=== PATIENT | male | born 1975 | race Caucasian/White ===

== ENCOUNTER 2016-07-23 11:12 | Emergency (ER) | payer SELFPAY ==
[~2016-07-23] VITALS: Ht 167.6 cm; Wt 62.4 kg
[~2016-07-23 11:12] MED LIST: PERCOCET 7.5-51 EACH PO
[2016-07-23 11:48] LABS: HEMATOCRIT 51.9 % (38.0-50.0); MCH 31.7 PG (29.0-34.0); MCHC 34.1 G/DL (30.0-36.0); RBC DIS.WIDTH-CV 12.2 % (11.8-14.6); RBC DIS.WIDTH-SD 42.3 % (39-53); RED BLOOD COUNT 5.58 M/uL (4.00-5.50)
[2016-07-23 12:00] LABS: CHLORIDE 104 mEq/L (99-109); SODIUM 140 mEq/L (136-147)
[2016-07-23 12:03] LABS: GLUCOSE 91 mg/dL (70-99)
[2016-07-23 12:04] LABS: ANION GAP 11 MEQ/L (2-14)
[2016-07-23 12:05] LABS: TOTAL BILIRUBIN 0.4 mg/dL (0.0-1.0)
[2016-07-23 12:06] LABS: ALKALINE PHOSPHATASE 100 IU/L (3-129); GFR ESTIMATE (CALCULATED) > 59 mL/min/
[2016-07-23 12:07] LABS: UREA NITROGEN (BUN) 14 mg/dL (9-23)
[2016-07-23 14:00] LABS: ADD MIUA? YES; BILIRUBIN NEGATIVE; BLOOD NEGATIVE; COLOR YELLOW ((YELLOW)); GLUCOSE (STRIP) NEGATIVE; KETONES NEGATIVE; LEUKOCYTES NEGATIVE; NITRITE NEGATIVE; PROTEIN (STRIP) NEGATIVE; SPECIFIC GRAVITY 1.027 (1.000-1.030)
[2016-07-23 14:08] LABS: BACTERIA NONE SEEN /HPF; BUDDING YEAST 1+; EPITHELIAL CELLS RARE /HPF; MUCUS TRACE /LPF; RED BLOOD CELLS NONE SEEN /HPF (0-5); UCUL ADDED? NO; WHITE BLOOD CELLS 0-5 /HPF (0-5)
[2016-07-23 14:31] LABS: MEAN PLAT.VOLUME 10.6 uM^3 (9.0-12.4); PLATELET COUNT 360 K/uL (156-360)
[2016-07-23] MEDS ORDERED: PROTONIX40 MG PO (14:41)
[2016-07-23 14:49] VITALS: BP 124/89
== END 2016-07-23 14:49 | disposition home or self-care (01) ==
LOC: EME 11:12
DX: R10.9 Unspecified abdominal pain (principal); Z87.442 Personal history of urinary calculi; G89.29 Other chronic pain
CPT/HCPCS: 74022; 80053; 81003; 85027; 99281; 99283